=== PATIENT | male | born 1980 | race Caucasian/White ===

== ENCOUNTER 2017-01-11 13:52 | Emergency (ER) | payer SELFPAY ==
[2017-01-11 13:57] VITALS: BP 150/70; PULSE 90; TEMP 98.3; BMI 25.1
[2017-01-11] MEDS ORDERED: DIPHTH,PERTUSS(ACELL),TET 0.5 ML DISP.SYRIN IM ONE ×2 (15:14→15:21)
--- NOTE | 2017-01-11 15:15 | PDOC ---
History of Present Illness - General Chief Complaint: Injury Stated Complaint: FALL (WORK RELATED) Time Seen by Provider: 01/11/17 14:51 History Source: Patient Exam Limitations: No Limitations - History of Present Illness Initial Comments: 01/11/17 18:44 Is carrying a large heavy piece of wood, when he stumbled causing that piece of wood to fall and scraping/abrading his left mid tibia. States injury occurred last night, went home cleaned and placed bacitracin ointment and Band-Aid but came for evaluation today as wound did not appear to be healing well. Patient denies numbness or tingling to foot, no fevers, is not exquisitely painful. Occurred: reports: yesterday Severity: reports: mild Pain Location: reports: lower extremity (left anterior tibia) Method of Injury: Yes: direct blow, fall Associated Symptoms (Fall): denies symptoms Past History - Travel Traveled outside of the country in the last 30 days: No Close contact w/someone who was outside of country & ill: No - Past Medical History Allergies/Adverse Reactions: Allergies Allergy/AdvReac Type Severity Reaction Status Date / Time No Known Allergies Allergy Verified 01/11/17 13:57 Home Medications: Ambulatory Orders NK [No Known Home Medication] 01/11/17 Other medical history: denies - Surgical History Appendectomy: Yes - Psycho/Social/Smoking Cessation Hx Suicidal Ideation: No Smoking History: Never smoked Information on smoking cessation initiated: No Hx Alcohol Use: No Drug/Substance Use Hx: No Substance Use Type: None Trauma Specific PMHX - Complaint Specific PMHX Back Injury: No Neck Injury: No Review of Systems - Review of Systems Able to Perform ROS?: Yes Is the patient limited Afghan proficient: Yes Constitutional: Yes: Symptoms Reported, See HPI, Malaise Respiratory: No: Symptoms reported, See HPI Musculoskeletal: Yes: Symptoms Reported, See HPI Integumentary: No: Symptoms Reported Neurological: Yes: See HPI. No: Symptoms reported All Other Systems: Reviewed and Negative *Physical Exam - Vital Signs Last Vital Signs Temp Pulse Resp BP Pulse Ox 98.3 F 90 18 150/70 100 01/11/17 13:55 01/11/17 13:55 01/11/17 13:55 01/11/17 13:55 01/11/17 13:55 - Physical Exam General Appearance: Yes: Nourished, Appropriately Dressed. No: Apparent Distress HEENT: positive: AMI, Normal ENT Inspection, TMs Normal, Pharynx Normal Neck: positive: Supple Respiratory/Chest: positive: Lungs Clear, Normal Breath Sounds Gastrointestinal/Abdominal: positive: Soft Extremity: positive: Normal Inspection, Normal Range of Motion, Other (tibial abrasion approximately 3 cm in length, no foreign bodies noted ). negative: Tender Integumentary: positive: Dry, Warm, Other Neurologic: positive: manager materials management II-XII NML intact, Fully Oriented, Alert, Normal Mood/ Affect, Normal Response, Motor Strength 5/5 Progress Note - Progress Note Progress Note: Superficial abrasion to right tibia, unable to close secondary to length of time open. Cleaned and dressed with bacitracin ointment and Band-Aid. Patient's tetanus/diphtheria/pertussis booster was updated today *DC/Admit/Observation/Transfer Diagnosis at time of Disposition: Abrasion - Discharge Dispostion Disposition: HOME Condition at time of disposition: Stable Admit: No - Patient Instructions Printed Discharge Instructions: DI for Abrasion Additional Instructions: Rest, keep area elevated. Avoid strenuous activity or exercise until wound is healed Use hot soaks to area to bring more blood to the surface and encourage drainage May change dressings as needed to keep clean - Allow water from shower to wash area thoroughly for 2-3 minutes, Change his dressing daily until the wound is completely healed. May use Tylenol or Motrin for mild pain relief Followup with private physician in 2-3 days for wound check Return to emergency Department for worsening swelling, pain, redness, fevers as needed - Post Discharge Activity Work/School Note: Back to Work
== END 2017-01-11 15:35 | disposition home or self-care (01) ==
LOC: JERFT 13:52
PROC: 3E0234Z Introduction of Serum, Toxoid and Vaccine into Muscle, Percutaneous Approach (ICD-10-PCS; principal; 2017-01-11)
DX: S89.82XA Other specified injuries of left lower leg, initial encounter (principal); W18.09XA Striking against other object with subsequent fall, initial encounter; Y93.89 Activity, other specified; Y92.69 Other specified industrial and construction area as the place of occurrence of the external cause; Y99.0 Civilian activity done for income or pay
CPT/HCPCS: 90715; 99281-25

== ENCOUNTER 2017-04-17 15:05 | Emergency (ER) | payer OTHER ==
[2017-04-17 15:20] VITALS: BP 126/90; PULSE 78; TEMP 97.9; BMI 24.4
--- NOTE | 2017-04-17 15:55 | PDOC ---
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 Pt denies direct trauma. pt has no fever or chills no medical history. Pt states the pain is worse after work and while at work lifting heavy fences. 04/17/17 16:38 Severity: reports: mild Loss of Consciousness: no loss of consciousness Past History - Past Medical History Allergies/Adverse Reactions: Allergies Allergy/AdvReac Type Severity Reaction Status Date / Time No Known Allergies Allergy Verified 04/17/17 15:18 Home Medications: Ambulatory Orders Naproxen [Naprosyn -] 500 mg PO BID PRN #14 tablet 04/17/17 - Surgical History Appendectomy: Yes - Immunization History Immunization Up to Date: Yes - Psycho/Social/Smoking Cessation Hx Suicidal Ideation: No Smoking History: Never smoked Hx Alcohol Use: Yes Drug/Substance Use Hx: No Substance Use Type: None Trauma Specific PMHX - Complaint Specific PMHX Back Injury: No Neck Injury: No Review of Systems - Review of Systems Able to Perform ROS?: Yes Is the patient limited Nepali proficient: No Constitutional: No: Symptoms Reported HEENTM: No: Symptoms Reported Respiratory: No: Symptoms reported Cardiac (ROS): No: Symptoms Reported ABD/GI: No: Symptoms Reported : No: Symptoms Reported Musculoskeletal: Yes: See HPI Integumentary: No: Symptoms Reported Neurological: No: Symptoms reported *Physical Exam - Vital Signs Last Vital Signs Temp Pulse Resp BP Pulse Ox 97.9 F 78 20 126/90 100 04/17/17 15:18 04/17/17 15:18 04/17/17 15:18 04/17/17 15:18 04/17/17 15:18 - Physical Exam General Appearance: Yes: Nourished, Appropriately Dressed HEENT: positive: EOMI, AMI Neck: positive: Supple Respiratory/Chest: positive: Lungs Clear, Normal Breath Sounds Cardiovascular: positive: Regular Rhythm, Regular Rate Musculoskeletal: positive: Normal Inspection Extremity: positive: Normal Capillary Refill, Normal Inspection, Normal Range of Motion, Other (no swelling no redness, joints without swelling , FROM all fingers , FROM both knees no crepitus or limitations ). negative: Tender, Swelling, Calf Tenderness Integumentary: positive: Normal Color, Dry, Warm Neurologic: positive: Fully Oriented, Alert, Normal Mood/Affect, Normal Response , Motor Strength 01/27 ED Treatment Course - LABORATORY CBC & Chemistry Diagram: 04/17/17 16:44 Medical Decision Making - Medical Decision Making 04/17/17 16:40 cc: knee pain, finger pain after lifting heavy fence at work. denies direct trauma states the pain continues at work for 1-2 months will get xray of right knee, as pt states "knee hosea" no evidence of infection, no fever no redness no swelling, no medical history 04/17/17 16:42 pt aware we will notify him if the Lyme test is positive. the labs done today are WNL. pt asking for work note for missing work today. pt and his friend understand the dc plan and follow up. All questions asked and answered. 04/17/17 19:08 *DC/Admit/Observation/Transfer Diagnosis at time of Disposition: Joint pain Qualifiers: Joint pain location: knee Laterality: right Qualified Code(s): M25.561 - Pain in right knee - Discharge Dispostion Disposition: HOME Condition at time of disposition: Good - Prescriptions Prescriptions: Naproxen [Naprosyn -] 500 mg PO BID PRN #14 tablet PRN Reason: Pain - Referrals Referrals: Sebastian Arciniega [Primary Care Provider] - Nael Navarro MD [Staff Physician] - - Patient Instructions Additional Instructions: please follow with your primary care doctor this week call today to make appointment, this is important to continue your workup take naprosyn as directed for pain apply ice every 2hrs for 20 minutes to the area of pain - Post Discharge Activity Work/School Note: Back to Work
[2017-04-17] MEDS ORDERED: KETOROLAC TROMETHAMINE 60 MG/2 ML VIAL IM ONE (16:03)
[2017-04-17] MEDS ORDERED: KETOROLAC TROMETHAMINE 60 MG/2 ML VIAL ONE (16:06)
[2017-04-17 17:34] LABS: ALBUMIN 3.7 g/dl (3.4-5.0); ALK PHOS 116 U/L (45-117); ANION GAP 7 (8-16); BILIRUBIN,TOTAL 0.2 mg/dL (0.2-1.0); CALCIUM 9.1 mg/dL (8.5-10.1); CO2 28 mmol/L (21-32); CREATININE 1.1 mg/dL (0.7-1.3); GLUCOSE,RANDOM 134 mg/dL (74-106); SGOT/AST 19 U/L (15-37); SGPT/ALT 22 U/L (12-78); TOT PROT 7.1 g/dl (6.4-8.2)
== END 2017-04-17 17:54 | disposition home or self-care (01) ==
LOC: JERFT 15:05
DX: M25.561 Pain in right knee (principal); M79.646 Pain in unspecified finger(s); X50.0XXA Overexertion from strenuous movement or load, initial encounter; Y93.H3 Activity, building and construction; Y92.69 Other specified industrial and construction area as the place of occurrence of the external cause; Y99.0 Civilian activity done for income or pay
CPT/HCPCS: 36415; 73562-TC-RT; 80053; 83735; 86618; 99282-25

== ENCOUNTER 2017-04-27 16:35 | Emergency (ER) | payer OTHER ==
[2017-04-27 16:55] VITALS: BP 144/98; PULSE 79; TEMP 98.1; BMI 33.0
[2017-04-27] MEDS ORDERED: predniSONE 20 MG TABLET (UD) PO ONE (17:13)
[2017-04-27] MEDS ORDERED: diphenhydrAMINE HCL 25 MG CAPSULE (FP) PO ONE ×2 (17:13→17:16)
--- NOTE | 2017-04-27 17:16 | PDOC ---
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 Patient states was near hedges containing poison lito when he was placing a fence 2 days ago. Patient states has had poison lito before and states similar symptoms. Patient denies difficulty swallowing, face involvement, or private areas. Timing/Duration: reports: other (2 days ago), getting worse Severity: Yes: moderate Location: reports: extremities, torso Respiratory Risk Factors: reports: no cause identified Associated Symptoms: reports: rash Past History - Travel Traveled outside of the country in the last 30 days: No Close contact w/someone who was outside of country & ill: No - Past Medical History Allergies/Adverse Reactions: Allergies Allergy/AdvReac Type Severity Reaction Status Date / Time No Known Allergies Allergy Verified 04/27/17 16:55 Home Medications: Ambulatory Orders NK [No Known Home Medication] 04/27/17 Other medical history: denies - Surgical History Appendectomy: Yes - Immunization History Immunization Up to Date: Yes - Psycho/Social/Smoking Cessation Hx Suicidal Ideation: No Smoking History: Never smoked Information on smoking cessation initiated: No Hx Alcohol Use: No Drug/Substance Use Hx: No Substance Use Type: None Patient Lives Alone: No Lives with/in: spouse/SO Review of Systems - Review of Systems Able to Perform ROS?: No Constitutional: No: Symptoms Reported HEENTM: No: Throat Swelling Integumentary: Yes: Pruritus, Rash *Physical Exam - Vital Signs Last Vital Signs Temp Pulse Resp BP Pulse Ox 98.1 F 79 18 144/98 97 04/27/17 16:53 04/27/17 16:53 04/27/17 16:53 04/27/17 16:53 04/27/17 16:53 - Physical Exam General Appearance: Yes: Nourished, Appropriately Dressed. No: Apparent Distress HEENT: positive: Pharynx Normal Neck: positive: Supple Respiratory/Chest: positive: Lungs Clear, Normal Breath Sounds. negative: Respiratory Distress, Accessory Muscle Use Cardiovascular: positive: Regular Rhythm, Regular Rate. negative: Murmur Extremity: negative: Normal Capillary Refill Integumentary: positive: Rash (Linear vesicular clustered rash to torso right hip, and bilateral upper extremities. No signs of cellulitis.) Neurologic: positive: Motor Strength 5/5 (ambulatory) Medical Decision Making - Medical Decision Making 04/27/17 17:16 Patient will contact dermatitis secondary to poison lito. Patient will be discharged home after receiving Benadryl and prednisone here with the same. *DC/Admit/Observation/Transfer Diagnosis at time of Disposition: Contact dermatitis due to poison lito - Discharge Dispostion Disposition: HOME Condition at time of disposition: Good - Patient Instructions Printed Discharge Instructions: DI for Poison Lito Allergy Additional Instructions: Please take Benadryl as needed for itching please start prednisone tomorrow since your given your first dose here in the ER. Keep area clean and dry avoid itching. Next and change linens daily. Sleep in a cold environment and avoid excessive outdoor exposure.
[2017-04-27] MEDS ORDERED: predniSONE 20 MG TABLET (UD) ONE (17:17)
== END 2017-04-27 17:20 | disposition home or self-care (01) ==
LOC: JERFT 16:35
DX: L23.7 Allergic contact dermatitis due to plants, except food (principal)
CPT/HCPCS: 99281-25

== ENCOUNTER 2023-08-04 11:05 | Emergency (ER) | payer OTHER ==
[2023-08-04 11:10] VITALS: BMI 24.4
[2023-08-04] MEDS ORDERED: LABETALOL HCL 5 MG/1 ML (100MG/20 ML VIAL) IVPUSH ONE ×3 (12:08→13:16)
[2023-08-04] MEDS ORDERED: ACETAMINOPHEN 1000 MG/100 ML BAG IVPB ONE (12:18)
[2023-08-04] MEDS ORDERED: morphine CARPU-JECT 4 MG/1 ML DISP.SYRIN IVPUSH ONE ×2 (12:22→15:11)
[2023-08-04] MEDS ORDERED: morphine SULFATE 4 MG/ML VIAL ONE ×2 (12:25→15:35)
[2023-08-04] MEDS ORDERED: ACETAMINOPHEN INJECTION 100 ML IVPB ONE (12:25)
[2023-08-04] MEDS ORDERED: LABETALOL HCL 20 MG/4 ML VIAL ONE ×3 (12:25→13:21)
[2023-08-04] MEDS ORDERED: ONDANSETRON 4 MG/2 ML VIAL IVPUSH ONE (12:30)
[2023-08-04] MEDS ORDERED: ESMOLOL 2500 MG/250 ML 2,500,000 MCG/250 ML INFUS.BAG IVPB SCH (12:30)
[2023-08-04] MEDS ORDERED: ONDANSETRON 4 MG/2 ML VIAL ONE (12:36)
[2023-08-04 12:42] LABS: BASO % 0.2 % (0-2.0); EOS % 0.1 % (0-4.5); HEMATOCRIT 47.6 % (35.4-49); HEMOGLOBIN 16.2 GM/dL (11.7-16.9); LYMPH % 11.1 % (8-40); MCH 30.4 pg (25.7-33.7); MEAN CELL VOLUME 89.4 fl (80-96); MEAN PLT VOLUME 11.2 fl (7.5-11.1); MONO % 5.6 % (3.8-10.2); PLATELET COUNT 180 10^3/uL (134-434); RBC 5.32 M/mm3 (4.00-5.60); RDW 12.3 % (11.9-15.9); WHITE BLOOD COUNT 15.2 K/mm3 (4.0-10.0)
[2023-08-04 12:44] LABS: PH,URINE 7.5 (5.0-8.0); URINE APPEARANCE CLEAR; URINE BILIRUBIN NEGATIVE (NEGATIVE); URINE COLOR YELLOW; URINE GLUCOSE (UA) 3+ (NEGATIVE); URINE KETONE NEGATIVE (NEGATIVE); URINE LEUK ESTERASE NEGATIVE (NEGATIVE); URINE NITRITE NEGATIVE (NEGATIVE); URINE PROTEIN NEGATIVE (NEGATIVE); URINE UROBILINOGEN 0.2 mg/dL (0.2-1.0)
[2023-08-04 12:51] LABS: INR 0.96 (0.83-1.09); PROTHROMBIN TIME (PATIENT) 11.1 SEC (9.7-13.0)
[2023-08-04 12:52] LABS: VENOUS BASE EXCESS 0.4 mmol/L (-2-2); VENOUS O2 SATURATION 42.7 % (70-80); VENOUS PCO2 38.4 mmHg (38-52); VENOUS PH 7.423 (7.310-7.410)
[2023-08-04 12:53] LABS: ACTIVATED PTT 29.9 SECONDS (25.2-36.5)
[2023-08-04 13:08] LABS: ALBUMIN 4.2 g/dl (3.4-5.0); BLOOD UREA NITROGEN 14.5 mg/dL (7-18); MAGNESIUM 2.1 mg/dL (1.8-2.4)
[2023-08-04 13:11] LABS: CREATININE 1.3 mg/dL (0.55-1.3)
[2023-08-04 13:12] LABS: BILIRUBIN,TOTAL 0.5 mg/dL (0.2-1); TOT PROT 7.7 g/dl (6.4-8.2)
[2023-08-04 13:16] LABS: LACTIC ACID 3.9 mmol/L (0.4-2.0)
[2023-08-04] MEDS ORDERED: POTASSIUM CHLORIDE ORAL LIQUID 20 MEQ/15 ML PO ONE (13:16)
[2023-08-04] MEDS ORDERED: POTASSIUM CHLORIDE TABS 20 MEQ TABLET.ER (FP) PO ONE ×2 (13:18→13:27)
[2023-08-04] MEDS ORDERED: MAG HYDROX/AL HYDROX/SIMETH 30 ML UNIT-DOSE CUP PO ONE (14:34)
[2023-08-04] MEDS ORDERED: FAMOTIDINE 20 MG/50 ML IVPB 20 MG/50 ML MG IVPB ONE ×2 (14:34→14:54)
[2023-08-04] MEDS ORDERED: MAG HYDROX/AL HYDROX/SIMETH 30 ML UNIT-DOSE CUP ONE (14:53)
[2023-08-04 14:58] VITALS: TEMP 98.1
[2023-08-04] MEDS ORDERED: AMPICILLIN NA/SULBACTAM NA 1.5 GM VIAL ONE (15:32)
[2023-08-04 16:21] LABS: METHADONE, UR NEGATIVE (NEGATIVE); OPIATES, URI NEGATIVE (NEGATIVE); PHENCYCLIDINE,URINE NEGATIVE (NEGATIVE)
[2023-08-04 16:28] VITALS: BP 139/105; PULSE 90; RESP 16
[2023-08-04 16:28] LABS: COCAINE, UR NEGATIVE (NEGATIVE); URINE AMPHETAMINES NEGATIVE (NEGATIVE); URINE BARBITURATES NEGATIVE (NEGATIVE); URINE BENZODIAZEPINES NEGATIVE (NEGATIVE)
== END 2023-08-04 16:30 | disposition short-term general hospital (02) ==
LOC: JER 11:05
PROC: 3E033GC Introduction of Other Therapeutic Substance into Peripheral Vein, Percutaneous Approach (ICD-10-PCS; principal; 2023-08-04)
PROC: 3E033NZ Introduction of Analgesics, Hypnotics, Sedatives into Peripheral Vein, Percutaneous Approach (ICD-10-PCS; 2023-08-04)
PROC: 3E033GC Introduction of Other Therapeutic Substance into Peripheral Vein, Percutaneous Approach (ICD-10-PCS; 2023-08-04)
PROC: 3E033GC Introduction of Other Therapeutic Substance into Peripheral Vein, Percutaneous Approach (ICD-10-PCS; 2023-08-04)
PROC: 3E033GC Introduction of Other Therapeutic Substance into Peripheral Vein, Percutaneous Approach (ICD-10-PCS; 2023-08-04)
PROC: 3E033GC Introduction of Other Therapeutic Substance into Peripheral Vein, Percutaneous Approach (ICD-10-PCS; 2023-08-04)
PROC: 3E033GC Introduction of Other Therapeutic Substance into Peripheral Vein, Percutaneous Approach (ICD-10-PCS; 2023-08-04)
DX: R10.12 Left upper quadrant pain (principal); R07.9 Chest pain, unspecified; I10 Essential (primary) hypertension; I77.79 Dissection of other specified artery; Z20.822 Contact with and (suspected) exposure to COVID-19
CPT/HCPCS: 0241U-QW; 36415; 71045-TC-FY; 71275-TC; 74174-TC; 80053; 80061; 80307; 81003; 82803; 83036; 83605; 83690; 83735; 84484; 85025; 85610; 85730; 86850; 86900; 86901; 87086; 93005; 93010; 99285-25; Q9967

== ENCOUNTER 2023-08-22 18:00 | Emergency (ER) | payer SELFPAY ==
[2023-08-22 18:22] VITALS: BP 109/68; PULSE 98; RESP 20; TEMP 98.4; BMI 24.4
== END 2023-08-22 20:53 | disposition home or self-care (01) ==
LOC: JERFT 18:00
DX: R05.1 Acute cough (principal); Z20.822 Contact with and (suspected) exposure to COVID-19
CPT/HCPCS: 0241U-QW; 99283-25